=== PATIENT | male | born 1945 | race Asian ===

== ENCOUNTER 2023-04-21 10:00 | Day surgery (SDC) | payer MEDICARE ==
[~2023-04-21] VITALS: Ht 170.2 cm; Wt 81.6 kg
[2023-04-21] MEDS ORDERED: LIDOCAINE 2% 100 MG/5 ML UJET TP ONE ×2 (12:13→14:45)
[2023-04-21] MEDS ORDERED: fentaNYL citrate 0.05 MG/ML VIAL ONE (12:13)
[2023-04-21] MEDS ORDERED: GLUCAGON 1 MG VIAL ONE ×2 (13:53→15:34)
[2023-04-21] MEDS ORDERED: fentaNYL citrate 0.05 MG/ML VIAL IVP ONE (14:45)
== END 2023-04-21 14:53 | disposition home or self-care (01) ==
LOC: MDS 10:00 → MMU 11:03 → MDS 14:53
PROVIDERS: ATTEND Internal Medicine Gastroenterology
DX: R14.0 Abdominal distension (gaseous) (principal); D12.2 Benign neoplasm of ascending colon; D12.3 Benign neoplasm of transverse colon; D12.5 Benign neoplasm of sigmoid colon; D12.8 Benign neoplasm of rectum; I12.9 Hypertensive chronic kidney disease with stage 1 through stage 4 chronic kidney disease, or unspecified chronic kidney disease; E11.22 Type 2 diabetes mellitus with diabetic chronic kidney disease; N18.9 Chronic kidney disease, unspecified; M10.9 Gout, unspecified; E78.00 Pure hypercholesterolemia, unspecified; K21.9 Gastro-esophageal reflux disease without esophagitis; Z79.899 Other long term (current) drug therapy
CPT/HCPCS: 45385; 82948; 88305; J1610; J3010